=== PATIENT | female | born 1985 | race Caucasian/White ===

== ENCOUNTER 2017-11-07 08:11 | Emergency (ER) | payer BC, MEDICAID ==
[2017-11-07] MEDS ORDERED: MORPHINE SULFATE 10 MG/ML INJ IM ONE (08:53)
[2017-11-07] MEDS ORDERED: LIDOCAINE 4%/TETRACAINE 0.5%/EPI 0.18% 5 ML TOPICAL SOLN TOP ONE (08:53)
--- NOTE | 2017-11-07 08:55 | ER Document Report ---
ED General - General Chief Complaint: Abscess Stated Complaint: POSSIBLE ABSCESS Time Seen by Provider: 11/07/17 08:35 Mode of Arrival: Ambulatory Information source: Patient, Relative - TRAVEL OUTSIDE OF THE [place] IN LAST 30 DAYS: No - HPI Notes: 32-year-old female presents today with complaints of a left-sided breast ovarian cyst that started approximately 3 days ago. She tried to "break it on my own" but noticed that it became increasingly worse this morning. Reports pain is 9 out of 10, sharp and throbbing. Patient reports she has a history of (3) right bartholion cyst on the left side, has had this lanced once before and the abscess ruptured twice. Has tried warm compresses without full relief. Unsure of history of MRSA. Worse with time, nothing makes better. Has tried [id number] ibuprofen some relief. Denies fevers, chills, chest pain, palpitations, shortness of breath, dyspnea, nausea, vomiting, diarrhea, abdominal pain, hematuria,blurred vision, double vision, loss of vision, speech changes, LH, dizziness, syncope, headaches, wheezing, ST, URI, neck pain, weakness, bowel or bladder dysfunction, saddle anesthesia, numbness or tingling in bilateral upper or lower extremities equally, muscle paralysis, weakness in bilateral upper or lower extremities equally or rash. Denies IV drug use. - Related Data Allergies/Adverse Reactions: peanut [Peanut] Allergy (Severe, Verified 11/07/17 08:13) Shortness of Breath Past Medical History - General Information source: Patient - Social History Smoking Status: Current Every Day Smoker Chew tobacco use (# tins/day): No Frequency of alcohol use: None Drug Abuse: None Family History: Arthritis, CVA, DM, Malignancy, Thyroid Disfunction Patient has suicidal ideation: No Patient has homicidal ideation: No Renal/ Medical History: Denies: Hx Peritoneal Dialysis Musculoskeltal Medical History: Reports Hx Musculoskeletal Trauma - fx arm Skin Medical History: Reports Hx Cellulitis Traumatic Medical History: Reports: Hx Fractures Past Surgical History: Reports: Hx Section, Hx Tonsillectomy Review of Systems - Review of Systems Notes: REVIEW OF SYSTEMS: CONSTITUTIONAL : Denies fever, chills, or sweats. Denies recent illness. EENT: Denies eye, ear, throat, or mouth pain or symptoms. Denies nasal or sinus congestion or discharge. Denies throat, tongue, or mouth swelling or difficulty swallowing. CARDIOVASCULAR: Denies chest pain. Denies palpitations or racing or irregular heart beat. Denies ankle edema. RESPIRATORY: Denies cough, cold, or chest congestion. Denies shortness of breath, difficulty breathing, or wheezing. GASTROINTESTINAL: Denies abdominal pain or distention. Denies nausea, vomiting , or diarrhea. Denies blood in vomitus, stools, or per rectum. Denies black, tarry stools. Denies constipation. GENITOURINARY: Denies difficulty urinating, painful urination, burning, frequency, blood in urine, or discharge. FEMALE GENITOURINARY: Denies vaginal bleeding, heavy or abnormal periods, irregular periods. Denies vaginal discharge or odor. MUSCULOSKELETAL: Denies back or neck pain or stiffness. Denies joint pain or swelling. SKIN: left sided labial abscess. Denies rash, lesions or sores. HEMATOLOGIC : Denies easy bruising or bleeding. LYMPHATIC: Denies swollen, enlarged glands. NEUROLOGICAL: Denies confusion or altered mental status. Denies passing out or loss of consciousness. Denies dizziness or lightheadedness. Denies headache. Denies weakness or paralysis or loss of use of either side. Denies problems with gait or speech. Denies sensory loss, numbness, or tingling. Denies seizures. PSYCHIATRIC: Denies anxiety or stress. Denies depression, suicidal ideation, or homicidal ideation. ALL OTHER SYSTEMS REVIEWED AND NEGATIVE. PHYSICAL EXAMINATION: GENERAL: Well-appearing, well-nourished and in no acute distress. HEAD: Atraumatic, normocephalic. EYES: Pupils equal round and reactive to light, extraocular movements intact, conjunctiva are normal. ENT: Nares patent, oropharynx clear without exudates. Moist mucous membranes. NECK: Normal range of motion, supple without lymphadenopathy LUNGS: Breath sounds clear to auscultation bilaterally and equal. No wheezes rales or rhonchi. HEART: Regular rate and rhythm without murmurs ABDOMEN: Soft, nontender, nondistended abdomen. No guarding, no rebound. No masses appreciated. Female : left bartholin's cyst approximately [id number] is noted erythema, induration and warmth to touch, noted fluctuance. No surrounding erythema. No surrounding lymphadenopathy. Musculoskeletal: Normal range of motion, no pitting or edema. No cyanosis. NEUROLOGICAL: Cranial nerves grossly intact. Normal speech, normal gait. Normal sensory, motor exams PSYCH: Normal mood, normal affect. SKIN: Warm, Dry, normal turgor, no rashes or lesions noted. Dictation was performed using [employer] voice recognition software Physical Exam - Vital signs Vitals: Temp Pulse Resp BP Pulse Ox 97.9 F 124 H 18 177/113 H 98 11/07/17 08:15 11/07/17 08:15 11/07/17 08:15 11/07/17 08:15 11/07/17 08:15 Course - Re-evaluation Re-evalutation: Healthy 32-year-old female with left bartholin abscess presents today for incision and drainage. Incision and drainage was successful, discussed with patient that she be seen in 2 days for packing change, take oral antibiotics as directed with food. She will be given clindamycin 300 mg every 6 hours for 7 days as well as Keflex 500 mg twice a day for 10 days. Apply warm compress 20 minutes off several times a day, monitor area for any signs of erythema, induration or drainage, take [id number] ibuprofen and Tylenol. Patient was given a sixpack of protocol for pain control. All questions and concerns answered by this provider. Patient agreed with plan of care and verbalized an understanding of plan of care. Patient was discharged home with strict instructions on when to return. - Vital Signs Vital signs: Temp Pulse Resp BP Pulse Ox 97.9 F 124 H 18 177/113 H 98 11/07/17 08:15 11/07/17 08:15 11/07/17 08:15 11/07/17 08:15 11/07/17 08:15 Procedures - Incision and Drainage Left Labia Time completed: 10:00 Type: Single Anesthetic type: 1% Lidocaine w/epi mL's of anesthetic: 3 - mL Blade size: 11 I&D procedure: Betadine prep applied, Chlorprep applied, Iodoform packing placed , Sterile dressing applied Incision Method: Incision made by scalpel Amount/type of drainage: purulent, bloody drainage, 35mL Notes: 11/07/17 10:41 verbal consent given by patient for incision and drainage. Wound culture obtained, patient tolerated procedure without any incident. Site cleaned with Shur-Clens and Betadine circular motion for approximately 30 seconds, 3 times. Left bartholin's cyst approximately [id number] No surrounding erythema. 11 blade scapel used to make a linear incision approximately 0.5cm no surrounding lymphadenopathy. 35 cc of purulent and bloody drainage expressed. Wound culture obtained. Tali clamp used to break up any inoculations. After all purulent and bloody discharge expressed, 500 mL's of normal saline used to irrigate out wound until clear. One fourth iodoform approximately 4 cm used for packing to left labia. Sterile dressing applied to area. patient tolerated procedure without distress or incident. 11/07/17 14:45 Discharge - Discharge Clinical Impression: Abscess of Bartholin's gland Condition: Good Disposition: HOME, SELF-CARE Instructions: Abscess ([facility]), Cephalexin ([facility]), MRSA Cellulitis ([facility]), Post Incision and Drainage Additional Instructions: CELLULITIS: You have an infection of your skin and underlying soft tissues called cellulitis. This is due to bacteria, which can enter through any break in the skin, or even through an irritated hair follicle. Untreated, cellulitis will usually worsen. Antibiotics are required. Usually, warm packs or warm soaks, and elevation of the infected area are recommended. You should start getting better within 24 to 36 hours. Most infections respond quickly to the right medication. Follow-up care is important, however, to check for abscess (boil) formation, unsuspected foreign body, or resistant infection. If you develop fever, chills, or if the area of infection is becoming rapidly more swollen or painful, call the doctor at once. MRSA CELLULITIS: You have an infection of your skin and underlying soft tissues called cellulitis. This is due to bacteria, which can enter through any break in the skin, or even through an irritated hair follicle. Untreated, cellulitis will usually worsen and may form an abscess which requires draining. Although many bacterial organisms can cause cellulitis and abscess formations, the most likely bacteria is Methicillin-Resistant Staph Aureus, or MRSA for short. Antibiotics are required. Usually, warm packs or warm soaks, and elevation of the infected area are recommended. You should start getting better within 24 to 36 hours. Most infections respond quickly to the right medication. Follow-up care is important, however, to check for abscess (boil) formation, unsuspected foreign body, or resistant infection. If you develop fever, chills, or if the area of infection is becoming rapidly more swollen or painful, call the doctor at once. ANTIBIOTIC THERAPY: You have been given an antibiotic prescription. It's important that you take all the medication, unless instructed otherwise by your physician. Failure to complete the entire course can result in relapse of your condition. Common side effects of antibiotics include nausea, intestinal cramping, or diarrhea. Women may develop vaginal yeast infections, and babies can get yeast (thrush) in the mouth following the use of antibiotics. Contact your physician if you develop significant side effects from this medication. Allergy to this antibiotic can result in hives, wheezing, faintness, or itching. If symptoms of allergy occur, stop the medication and call the doctor. CLINDAMYCIN: You have been given a prescription for the antibiotic clindamycin. It is often prescribed for infections in the mouth, such as dental infections or abscesses, and for skin infections due to MRSA. It's important that you take all the medication, unless instructed otherwise by your physician. Failure to complete the entire course can result in relapse of your condition. Common side effects of antibiotics include nausea, intestinal cramping, or diarrhea. Women may develop vaginal yeast infections, and babies can get yeast (thrush) in the mouth following the use of antibiotics. Contact your physician if you develop significant side effects from this medication. Allergy to this antibiotic can result in hives, wheezing, faintness, or itching. If symptoms of allergy occur, stop the medication and call the doctor. ORAL NARCOTIC MEDICATION: You have been given a prescription for pain control. This medication is a narcotic. It's best taken with food, as nausea can result if taken on an empty stomach. Don't operate machinery or drive within six hours of taking this medication. Do not combine this medicine with alcohol, or with any medication which can cause sedation (such as cold tablets or sleeping pills) unless you get permission from the physician. Narcotics tend to cause constipation. If possible, drink plenty of fluids and eat a diet high in fiber and fruits. Please be aware that prescription narcotics also have the potential for abuse. People become addicted to these medications because of the general sense of wellbeing that they induce. This feeling along with a significant reduction in tension, anxiety, and aggression provides a stimulating seductive quality to these drugs. Once your pain is under control, we encourage you to discard your unused narcotics. FOLLOW-UP CARE: If you have been referred to a physician for follow-up care, call the physician s office for an appointment as you were instructed or within the next two days. If you experience worsening or a significant change in your symptoms, notify the physician immediately or return to the Emergency Department at any time for re-evaluation. You need a wound repacking in 2 days. Wash with soap and water twice a day. Take [place] as directed, do not drive or drink or operate heavy machinery while taking medication. Monitor for any signs and symptoms of infection such as redness, swelling, increased pain or drainage. Take [id number] ibuprofen and Tylenol as needed for pain. Return to the emergency room if symptoms become worse. Discharge Prescriptions: Cephalexin Monohydrate [Keflex 500 mg Capsule] 500 mg PO BID #20 capsule Clindamycin HCl 300 mg PO Q6H #28 capsule Referrals: NAIMA CORCORAN MD [ACTIVE STAFF] - 11/09/17 STEVEN ESPINOSA MD [Primary Care Provider] - Follow up as needed
[2017-11-07] MEDS ORDERED: LIDOCAINE 1%/EPINEPHRINE INJ 20 ML VIAL INJ ONE (09:17)
[2017-11-07] MEDS ORDERED: HYDROCODONE/ACETAMINOPHEN 5-325 MG (6 TAB/ER DISP) PO PRN (10:39)
[2017-11-07 10:40] VITALS: BP 151/86
== END 2017-11-07 10:52 | disposition home or self-care (01) ==
LOC: ER 08:11
DX: N75.1 Abscess of Bartholin's gland (principal); Z91.010 Allergy to peanuts
CPT/HCPCS: 99283; 96372; 87070; 87205; 87075; 87077; 56420; A6266; J3490 ×2; J2270

== ENCOUNTER 2018-10-06 12:20 | Emergency (ER) | payer MEDICAID, OTHER ==
--- NOTE | 2018-10-06 13:11 | ER Document Report ---
ED Medical Screen (RME) - General Chief Complaint: Post Surgical Bleeding Stated Complaint: POST OPERATIVE BLEEDING Time Seen by Provider: 10/06/18 13:06 Primary Care Provider: STEVEN ESPINOSA MD [Primary Care Provider] - Follow up as needed Mode of Arrival: Ambulatory Information source: Patient Notes: 33-year-old female status post Bartholin cyst removal (Dr. Mir yesterday at approximately 11 AM). Patient presents for wound check. She had a lot of bloody discharge last night and was uncomfortable. She states that the bleeding is actually improved but she wanted to get checked out. TRAVEL OUTSIDE OF THE [place] IN LAST 30 DAYS: No - Related Data Allergies/Adverse Reactions: peanut [Peanut] Allergy (Severe, Verified 10/06/18 12:21) Shortness of Breath Past Medical History - Social History Chew tobacco use (# tins/day): No Frequency of alcohol use: None Drug Abuse: None Renal/ Medical History: Denies: Hx Peritoneal Dialysis Musculoskeltal Medical History: Reports Hx Musculoskeletal Trauma - fx arm Skin Medical History: Reports Hx Cellulitis Traumatic Medical History: Reports: Hx Fractures Past Surgical History: Reports: Hx Section, Hx Tonsillectomy Physical Exam - Vital signs Vitals: Temp Pulse Resp BP Pulse Ox 99.3 F 116 H 14 147/97 H 100 10/06/18 12:25 10/06/18 12:25 10/06/18 12:25 10/06/18 12:25 10/06/18 12:25 Course - Vital Signs Vital signs: Temp Pulse Resp BP Pulse Ox 99.3 F 116 H 14 147/97 H 100 10/06/18 12:25 10/06/18 12:25 10/06/18 12:25 10/06/18 12:25 10/06/18 12:25 Doctor's Discharge - Discharge Referrals: STEVEN ESPINOSA MD [Primary Care Provider] - Follow up as needed
[2018-10-06] MEDS ORDERED: OXYCODONE-ACETAMINOPHEN 5-325 MG TABLET PO ONE (15:13)
--- NOTE | 2018-10-06 15:20 | ER Document Report ---
ED General - General Chief Complaint: Post Surgical Bleeding Stated Complaint: POST OPERATIVE BLEEDING Time Seen by Provider: 10/06/18 13:06 Primary Care Provider: STEVEN ESPINOSA MD [ACTIVE STAFF] - Follow up as needed Mode of Arrival: Ambulatory TRAVEL OUTSIDE OF THE [place] IN LAST 30 DAYS: No - HPI Notes: Patient is a 33-year-old female that presents to the emergency department for chief complaint of postoperative bleeding. Patient reports around 11 AM yesterday she had a left bartholins gland removed. Patient report she had 5 bartholins gland infections in the past which is why she opted to have the gland removed. She states last night she was passing large dark clots and was concerned that she had too much bleeding. She states the bleeding seems to have stopped at this morning. She does report a sharp pain in her perineal region which is worse with any kind of sitting or moving. She denies any fevers or chills. Patient has been taking Percocet at home and her last dose was around 10 AM. She states it does help the pain. She is not sure what the postop follow-up recommendation is currently. Past Medical History: Reviewed in chart Past Surgical History: Left bartholins gland removal Social History: Denies tobacco and alcohol use Family History: Reviewed and noncontributory for presenting illness Allergies: Reviewed, see documented allergy list. REVIEW OF SYSTEMS: CONSTITUTIONAL : No fever No chills No diaphoresis No recent illness EENT: No vision changes No congestion No sore throat CARDIOVASCULAR: No chest pain No palpitations RESPIRATORY: No shortness of breath No cough No difficulty breathing GASTROINTESTINAL: No abdominal pain No nausea No vomiting No diarrhea GENITOURINARY: Vaginal bleeding No dysuria No hematuria No difficulty urinating MUSCULOSKELETAL: No back pain No leg pain No arm pain SKIN: No rashes No lesions LYMPHATIC: No swollen, enlarged glands. NEUROLOGICAL: No lightheadedness No headache No weakness No paresthesias PSYCHIATRIC: No anxiety No depression PHYSICAL EXAMINATION: Vital signs reviewed, nursing noted reviewed. GENERAL: Well-appearing, well-nourished and in no acute distress. HEAD: Atraumatic, normocephalic. EYES: Eyes appear normal, extraocular movements intact, sclera anicteric, conjunctiva are normal. ENT: nares patent, oropharynx clear without exudates. Moist mucous membranes. NECK: Normal range of motion, supple without lymphadenopathy LUNGS: Breath sounds clear to auscultation bilaterally and equal. No wheezes rales or rhonchi. HEART: Regular rate and rhythm without murmurs ABDOMEN: Soft, nontender, normoactive bowel sounds. No rebound, guarding, or rigidity. No masses appreciated. : Large amount of left perineal ecchymosis and edema. No active bleeding. No surgical incision or stitches visualized EXTREMITIES: Nontender, good range of motion, no pitting or edema. NEUROLOGICAL: No focal neurological deficits. Moves all extremities spontaneously Motor and sensory grossly intact on exam. PSYCH: Normal mood, normal affect. SKIN: Warm, Dry, normal turgor, no rashes or lesions noted on exposed skin - Related Data Allergies/Adverse Reactions: peanut [Peanut] Allergy (Severe, Verified 10/06/18 12:21) Shortness of Breath Past Medical History - General Information source: Patient - Social History Smoking Status: Never Smoker Chew tobacco use (# tins/day): No Frequency of alcohol use: None Drug Abuse: None Family History: Arthritis, CVA, DM, Malignancy, Thyroid Disfunction Patient has suicidal ideation: No Patient has homicidal ideation: No Renal/ Medical History: Denies: Hx Peritoneal Dialysis Musculoskeletal Medical History: Reports Hx Musculoskeletal Trauma - fx arm Skin Medical History: Reports Hx Cellulitis Traumatic Medical History: Reports: Hx Fractures Past Surgical History: Reports: Hx Section, Hx Tonsillectomy Physical Exam - Vital signs Vitals: Temp Pulse Resp BP Pulse Ox 99.3 F 116 H 14 147/97 H 100 10/06/18 12:25 10/06/18 12:25 10/06/18 12:25 10/06/18 12:25 10/06/18 12:25 Course - Re-evaluation Re-evalutation: 10/06/18 15:20 Vitals reviewed. Nursing notes reviewed. Patient is not having any bleeding currently. She does have a large amount of postoperative swelling and bruising. Patient was given a Percocet in the ED for pain. I did equal opportunity counselor her at length regarding my conversation with Dr. Mallory, FAMILY PROGRAM SPECIALIST. She recommended ice and getting a inflated hemorrhoid cushion to help with positional discomfort. If patient notices any bright red bleeding she is to return to the emergency room. She states that some large dark blood clots may continue to pass and that this is a very vascular surgery. Patient has no other complaints and denies any li ghtheadedness. She is mildly tachycardic likely related to pain. She is tolerating oral intake and does not appear dehydrated or pale. I do not feel further blood work is currently indicated. She will follow on Monday with FAMILY PROGRAM SPECIALIST in the office. She will return to the emergency room for any continued bleeding. She is in agreement with plan of care and stable at discharge. - Vital Signs Vital signs: Temp Pulse Resp BP Pulse Ox 99.3 F 116 H 14 147/97 H 100 10/06/18 12:25 10/06/18 12:25 10/06/18 12:25 10/06/18 12:25 10/06/18 12:25 Discharge - Discharge Clinical Impression: Post-op bleeding Qualifiers: Surgical complication system/body Area: skin Procedure type: dermatologic Qualified Code(s): L76.21 - Postprocedural hemorrhage of skin and subcutaneous tissue following a dermatologic procedure Condition: Stable Disposition: HOME, SELF-CARE Additional Instructions: Please return to the emergency department if you have any worsening, or concern of your symptoms. Please return to the emergency department if you develop chest pain, difficulty breathing, severe abdominal pain, or ongoing vomiting. If prescribed, take all medications as directed. If you have any questions or concerns do not hesitate to return the emergency department for evaluation. Ice your perineum for 15 minutes at a time every few hours. Return to the emergency room if you develop bright red bleeding Call Dr. Mir's office first thing Monday and be seen in the office on Monday for reevaluation. Referrals: STEVEN ESPINOSA MD [ACTIVE STAFF] - Follow up as needed [facility] [Provider Group] - 10/09/18
[2018-10-06 15:31] VITALS: BP 169/83
== END 2018-10-06 15:32 | disposition home or self-care (01) ==
LOC: ER 12:20
DX: L76.21 Postprocedural hemorrhage of skin and subcutaneous tissue following a dermatologic procedure (principal); N99.820 Postprocedural hemorrhage of a genitourinary system organ or structure following a genitourinary system procedure; Z98.890 Other specified postprocedural states; Z79.899 Other long term (current) drug therapy
CPT/HCPCS: 99283